=== PATIENT | male | born 1970 | race Caucasian/White ===

== ENCOUNTER 2016-06-25 11:34 | Emergency (ER) | payer BC ==
[~2016-06-25] VITALS: Ht 170.2 cm; Wt 66.8 kg
[2016-06-25 11:37] VITALS: TEMP 98.3
[2016-06-25 13:10] LABS: ADJUSTED CALCIUM 8.5 mg/dL (8.4-10.2); ALBUMIN 4.5 gm/dL (3.5-5.0); BILIRUBIN,TOTAL 0.9 mg/dL (0.0-1.0); CALCIUM 8.9 mg/dL (8.4-10.2); CREATININE, serum 0.75 mg/dL (0.66-1.25); POTASSIUM 4.4 mmol/L (3.4-5.0); TOTAL PROTEIN 7.4 gm/dL (6.4-8.2)
[2016-06-25 13:11] LABS: INR 0.9 (0.8-3.0); PROTHROMBIN TIME 10.2 SECONDS (9.7-12.8)
[2016-06-25] MEDS ORDERED: XANAX 0.5MG0.5 MG PO (13:58)
[2016-06-25 14:09] VITALS: BP 127/92; PULSE 86
== END 2016-06-25 14:11 | disposition home or self-care (01) ==
LOC: COL.ER 11:34
PROVIDERS: Emergency Medicine
DX: F10.10 Alcohol abuse, uncomplicated (principal); Y90.8 Blood alcohol level of 240 mg/100 ml or more; R45.1 Restlessness and agitation; R41.3 Other amnesia